=== PATIENT | male | born 1985 | race Caucasian/White ===

== ENCOUNTER 2019-11-14 12:04 | Emergency (ER) | payer OTHER ==
[2019-11-14] MEDS ORDERED: KETOROLAC 30 MG/ML INJ ONE (12:54)
[2019-11-14] MEDS ORDERED: DIAZEPAM 5 MG TABLET ONE (12:54)
[2019-11-14] MEDS ORDERED: LIDOCAINE 4% PATCH ONE (12:55)
[2019-11-14] MEDS ORDERED: MORPHINE 4 MG/ML SYR ONE (13:19)
--- NOTE | 2019-11-14 13:57 | ER ---
Nurse's Notes [facility] Name: Lenny Hickman Age: 34 yrs Sex: Male : 1985 Arrival Date: 11/14/2019 Time: 12:07 Bed 20 Private MD: Diagnosis: Low back pain Presentation: 11/14 12:07 Presenting complaint: EMS states: CHRONIC BACK PAIN EXACERBATION. Transition of care: bp patient was not received from another setting of care. Onset of symptoms is unknown. Risk Assessment: Do you want to hurt yourself or someone else? Patient reports no desire to harm self or others. Initial Sepsis Screen: Does the patient meet any 2 criteria? HR > 90 bpm. Does the patient have a suspected source of infection? No. Patient's initial sepsis screen is negative. Care prior to arrival: IV initiated. 20 GA, in the left antecubital area. 12:07 Acuity: BRANDON 4 bp 12:07 Method Of Arrival: EMS: [facility] bp Triage Assessment: 12:09 General: Appears in no apparent distress. uncomfortable, Behavior is calm, cooperative, bp appropriate for age. Pain: Complains of pain in back. EENT: No deficits noted. Neuro: No deficits noted. Cardiovascular: No deficits noted. Respiratory: No deficits noted. GI: No signs and/or symptoms were reported involving the gastrointestinal system. : No signs and/or symptoms were reported regarding the genitourinary system. Derm: No deficits noted. Musculoskeletal: Circulation, motion, and sensation intact. Range of motion: intact in all extremities. Historical: - Allergies: 12:09 No Known Allergies; bp - PMHx: 12:09 Chronic pain; Depression; bp - Immunization history:: Adult Immunizations up to date. - Social history:: Smoking status: Patient denies any tobacco usage or history of. - Ebola Screening: : No symptoms or risks identified at this time. Screenin:10 Abuse screen: Denies threats or abuse. Denies injuries from another. Nutritional bp screening: No deficits noted. Tuberculosis screening: No symptoms or risk factors identified. Fall Risk None identified. Assessment: 12:10 General: SEE TRIAGE NOTE. Neuro: Level of Consciousness is awake, alert, obeys bp commands, Oriented to person, place, time, situation, Appropriate for age Moves all extremities. Full function. 14:10 Reassessment: PT FAILED AMBULATION TEST. PROVIDER INFORMED. bp 14:23 Reassessment: D/C ON HOLD. PT MEDICATED FOR MUSCLE SPASMS. bp 15:24 Reassessment: PT AMBULATING SUCCESSFULLY. D/C HOME AMBULATORY WITH FAMILY, DX WITH LOW bp BACK PAIN. Vital Signs: 12:09 BP 130 / 80; Pulse 92; Resp 17; Temp 98; Pulse Ox 99% ; Weight 108.86 kg; bp 13:04 BP 133 / 86; Pulse 91; Resp 17; Pulse Ox 94% ; bp 14:01 BP 109 / 67; Pulse 102; Resp 17; Temp 98; Pulse Ox 96% ; bp 15:26 BP 117 / 71; Pulse 95; Resp 17; Temp 98.5; Pulse Ox 100% ; bp ED Course: 12:07 Patient arrived in ED. bp 12:07 Sergey Samuel FNP-C is PHCP. la1 12:07 Sienna Sen MD is Attending Physician. la1 12:09 Triage completed. bp 12:09 Arm band placed on. bp 12:10 Patient has correct armband on for positive identification. Bed in low position. Call bp light in reach. Side rails up X2. 12:11 Maintain EMS IV. Dressing intact. Good blood return noted. Site clean \T\ dry. Gauge \T\ bp site: 20 GAUGE LEFT AC. 12:41 Ayaan Rodriges, RN is Primary Nurse. bp 15:25 No provider procedures requiring assistance completed. IV discontinued, intact, bp bleeding controlled, No redness/swelling at site. Pressure dressing applied. Administered Medications: 12:45 Drug: Lidoderm 5 % (700 mg/patch) 1 patches Route: Topical; Site: affected area; bp 12:45 Drug: TORadol - Ketorolac 15 mg Route: IVP; Site: left antecubital; bp 13:05 Follow up: Response: Pain is decreased bp 12:45 Drug: Valium 10 mg Route: PO; bp 13:05 Follow up: Response: Pain is decreased bp 13:19 Drug: morphine 4 mg Route: IVP; Site: left antecubital; bp 13:19 Follow up: Response: No adverse reaction; Pain is decreased bp 14:22 Drug: Valium 2 mg Route: IVP; Site: left antecubital; bp 15:26 Follow up: Response: Pain is decreased bp Outcome: 13:57 Discharge ordered by MD. perea 15:25 Discharged to home ambulatory, with family. bp 15:25 Condition: stable 15:25 Discharge instructions given to patient, Instructed on discharge instructions, follow up and referral plans. medication usage, Demonstrated understanding of instructions, follow-up care, medications, Prescriptions given X 2. 15:32 Patient left the ED. bp Signatures: Sergey Samuel, ARCHITECTURE CONSULTANT-C ARCHITECTURE CONSULTANT-Cla1 Ayaan Rodriges, RN RN bp
--- NOTE | 2019-11-14 13:58 | EDPHYS ---
Physician Documentation [facility] Name: Lenny Hickman Age: 34 yrs Sex: Male : 1985 Arrival Date: 11/14/2019 Time: 12:07 Bed 20 Private MD: ED Physician Sienna Sen HPI: 11/14 13:07 This 34 yrs old Male presents to ER via EMS with complaints of Back Pain. la1 13:07 The patient presents with pain that is chronic, with no known mechanism of injury. The la1 symptoms are located in the low back. Onset: The symptoms/episode began/occurred just prior to arrival. The pain does not radiate. Associated signs and symptoms: Pertinent negatives: abdominal pain, chest pain, constipation, dysuria, fever, headache, hematuria, incontinence, nausea, numbness, tingling, urinary retention. The problem was sustained using foam roller. Modifying factors: The patient symptoms are alleviated by nothing, the patient symptoms are aggravated by any movement. Severity of symptoms: At their worst the symptoms were moderate. The patient has experienced similar episodes in the past. Historical: - Allergies: 12:09 No Known Allergies; bp - PMHx: 12:09 Chronic pain; Depression; bp - Immunization history:: Adult Immunizations up to date. - Social history:: Smoking status: Patient denies any tobacco usage or history of. - Ebola Screening: : No symptoms or risks identified at this time. ROS: 13:08 Constitutional: Negative for fever, chills, and weight loss, Eyes: Negative for injury, la1 pain, redness, and discharge, ENT: Negative for injury, pain, and discharge, Neck: Negative for injury, pain, and swelling, Cardiovascular: Negative for chest pain, palpitations, and edema, Respiratory: Negative for shortness of breath, cough, wheezing, and pleuritic chest pain, Abdomen/GI: Negative for abdominal pain, nausea, vomiting, diarrhea, and constipation. 13:08 : Negative for injury, bleeding, discharge, and swelling, MS/Extremity: Negative for injury and deformity, Neuro: Negative for headache, weakness, numbness, tingling, and seizure. 13:08 Back: Positive for pain at rest, pain with movement. Exam: 13:09 Constitutional: This is a well developed, well nourished patient who is awake, alert, la1 and in no acute distress. Head/Face: Normocephalic, atraumatic. Eyes: Periorbital areas with no swelling, redness, or edema. Neck: Trachea midline No Meningismus. Chest/axilla: Normal chest wall appearance and motion. Cardiovascular: Regular rate and rhythm with a normal S1 and S2. No gallops, murmurs, or rubs. Normal PMI, no JVD. No pulse deficits. Respiratory: Lungs have equal breath sounds bilaterally, clear to auscultation. Abdomen/GI: Soft, non-tender, with normal bowel sounds Back: No spinal tenderness. No costovertebral tenderness. Full range of motion. 13:57 Neuro: Exam negative for acute changes, focal neuro deficits, motor deficits, sensory la1 deficits, cerebellar deficits, altered mental status, confusion, cranial nerve deficits, disorientation. Vital Signs: 12:09 BP 130 / 80; Pulse 92; Resp 17; Temp 98; Pulse Ox 99% ; Weight 108.86 kg; bp 13:04 BP 133 / 86; Pulse 91; Resp 17; Pulse Ox 94% ; bp 14:01 BP 109 / 67; Pulse 102; Resp 17; Temp 98; Pulse Ox 96% ; bp 15:26 BP 117 / 71; Pulse 95; Resp 17; Temp 98.5; Pulse Ox 100% ; bp MDM: 12:07 Patient medically screened. la1 13:55 Data reviewed: vital signs, nurses notes, and as a result, I will discharge patient. la1 Data interpreted: Pulse oximetry: on room air is 95 %. Interpretation: acceptable. Counseling: I had a detailed discussion with the patient and/or guardian regarding: the historical points, exam findings, and any diagnostic results supporting the discharge/admit diagnosis, the need for outpatient follow up, a family practitioner, to return to the emergency department if symptoms worsen or persist or if there are any questions or concerns that arise at home. Medication response: morphine partially relieved the patient's pain. Response to treatment: the patient's symptoms have mildly improved after treatment, and as a result, I will discharge patient. ED course: pt with chronic back pain, no red flag back pain signs, pt feeling better after meds, will FU with PCP. Administered Medications: 12:45 Drug: Lidoderm 5 % (700 mg/patch) 1 patches Route: Topical; Site: affected area; bp 12:45 Drug: TORadol - Ketorolac 15 mg Route: IVP; Site: left antecubital; bp 13:05 Follow up: Response: Pain is decreased bp 12:45 Drug: Valium 10 mg Route: PO; bp 13:05 Follow up: Response: Pain is decreased bp 13:19 Drug: morphine 4 mg Route: IVP; Site: left antecubital; bp 13:19 Follow up: Response: No adverse reaction; Pain is decreased bp 14:22 Drug: Valium 2 mg Route: IVP; Site: left antecubital; bp 15:26 Follow up: Response: Pain is decreased bp Disposition: 18:21 Co-signature as Attending Physician, Sienna Sen MD. ma2 Disposition: 11/14/19 13:57 Discharged to Home. Impression: Low back pain. - Condition is Stable. - Discharge Instructions: Back Pain, Adult, Musculoskeletal Pain, Back Pain, Adult, [id number], Back Exercises, [id number]. - Prescriptions for Robaxin 500 mg Oral Tablet - take 2 tablet by ORAL route every 6 hours As needed; 40 tablet. Cyclobenzaprine 10 mg Oral Tablet - take 1 tablet by ORAL route every 8 hours As needed; 30 tablet. - Medication Reconciliation Form, Thank You Letter form. - Follow up: Private Physician; When: 2 - 3 days; Reason: Recheck today's complaints, Re-evaluation by your physician. - Problem is new. - Symptoms have improved. Signatures: Sergey Samuel, IRONWORKER APPRENTICE SHOP-C IRONWORKER APPRENTICE SHOP-Cla1 Ayaan Rodriges RN RN Sienna Schultz MD MD ma2 Corrections: (The following items were deleted from the chart) 15:32 13:57 11/14/2019 13:57 Discharged to Home. Impression: Low back pain. Condition is bp Stable. Forms are Medication Reconciliation Form, Thank You Letter, Antibiotic Education, Prescription Opioid Use. Follow up: Private Physician; When: 2 - 3 days; Reason: Recheck today's complaints, Re-evaluation by your physician. Problem is new. Symptoms have improved. la1
[2019-11-14] MEDS ORDERED: DIAZEPAM 10 MG/2 ML INJ SYRINGE ONE (14:21)
[2019-11-14 15:55] VITALS: BP 117/71; TEMP 98.5; O2SAT 100
== END 2019-11-14 15:32 | disposition home or self-care (01) ==
LOC: ER 12:04
DX: M54.5 Low back pain (principal); G89.29 Other chronic pain
CPT/HCPCS: 96375; 96374; 99283; J3360

== ENCOUNTER 2020-11-16 02:20 | Emergency (ER) | payer OTHER ==
[2020-11-16] MEDS ORDERED: predniSONE 20 MG TAB ONE (02:59)
[2020-11-16] MEDS ORDERED: KETOROLAC 30 MG/ML INJ ONE (02:59)
[2020-11-16 03:43] LABS: SARS-COV-2 RT PCR POSITIVE (NEGATIVE)
--- NOTE | 2020-11-16 03:48 | ER ---
Nurse's Notes [facility] Name: Lenny Hickman Age: 35 yrs Sex: Male : 1985 Arrival Date: 11/16/2020 Time: 02:21 Bed 4 Private MD: Diagnosis: Coronavirus infection, unspecified Presentation: 11/16 02:28 Chief complaint: Patient states: This all started on , thought it was just sg sinus infection/head cold. reports feeling chills and having a cough with phlegm, states increases fluids and having an increase in urination. no other symptoms reported for triage at this time. Coronavirus screen: Client denies travel out of the [place] in the last 14 days. chills, congestion, cough unrelated to allergies, fatigue, Client presents with at least one sign or symptom that may indicate coronavirus-19. Standard/surgical mask placed on the client. Provider contacted for isolation considerations. The client denies any previous COVID testing. Ebola Screen: Patient negative for fever greater than or equal to 101.5 degrees Fahrenheit, and additional compatible Ebola Virus Disease symptoms Patient denies exposure to infectious person. Patient denies travel to an Ebola-affected area in the 21 days before illness onset. No symptoms or risks identified at this time. Initial Sepsis Screen: Does the patient meet any 2 criteria? No. Patient's initial sepsis screen is negative. Does the patient have a suspected source of infection? No. Patient's initial sepsis screen is negative. Risk Assessment: Do you want to hurt yourself or someone else? Patient reports no desire to harm self or others. 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 Onset of symptoms was November 10, 2020. Care prior to arrival: None. Mechanism of Injury: No Mechanism of Injury. Transition of care: patient was not received from another setting of care. 02:28 Acuity: BRANDON 4 sg 02:28 Method Of Arrival: Ambulatory sg Historical: - Allergies: 02:33 No Known Allergies; sg - Home Meds: 02:33 Lunesta oral oral [Active]; Effexor Oral [Active]; Latuda oral oral [Active]; sg - PMHx: 02:33 Chronic pain; Depression; sg - PSHx: 02:33 None; sg - Immunization history:: Adult Immunizations up to date. - Social history:: Smoking status: Patient denies any tobacco usage or history of. Patient/guardian denies using alcohol, street drugs, The patient lives with family. - Family history:: not pertinent. Screenin:34 Abuse screen: Denies threats or abuse. Nutritional screening: No deficits noted. ea Tuberculosis screening: No symptoms or risk factors identified. Fall Risk None identified. Assessment: 02:33 General: Appears in no apparent distress. Behavior is calm, cooperative, appropriate ea for age. Pain: Denies pain. Neuro: Level of Consciousness is awake, alert, obeys commands, Oriented to person, place, time, situation. Respiratory: Airway is patent Respiratory effort is even, unlabored, Respiratory pattern is regular, symmetrical. Derm: Skin is pink, warm \T\ dry. 03:30 Reassessment: Patient and/or family updated on plan of care and expected duration. Pain ea level reassessed. Patient is alert, oriented x 3, equal unlabored respirations, skin warm/dry/pink. 03:54 Reassessment: Patient and/or family updated on plan of care and expected duration. Pain ea level reassessed. Patient is alert, oriented x 3, equal unlabored respirations, skin warm/dry/pink. Discharge instruction given to patient, verbalized the understanding of instruction. Pt left ED ambulatory tolerating well. Vital Signs: 02:34 BP 151 / 117; Pulse 117; Resp 18; Pulse Ox 93% ; ea 02:34 Weight 117.93 kg (R); Height 5 ft. 10 in. (177.80 cm) (R); sg 03:30 BP 110 / 94; Pulse 71; Resp 18; Pulse Ox 96% on R/A; ea 03:35 Temp 98.3; ea 02:34 Body Mass Index 37.31 (117.93 kg, 177.80 cm) ED Course: 02:21 Patient arrived in ED. cl3 02:23 Sienna Sen MD is Attending Physician. ma2 02:28 Arm band placed on. sg 02:31 Triage completed. sg 02:33 Noemi Shelton, JOHN is Primary Nurse. ea 02:34 Patient has correct armband on for positive identification. Bed in low position. Call ea light in reach. Side rails up X2. 02:50 CXR XRAY In Process Unspecified. EDMS 03:55 No provider procedures requiring assistance completed. IV discontinued, intact, ea bleeding controlled, No redness/swelling at site. Pressure dressing applied. Administered Medications: 02:51 Drug: predniSONE 40 mg Route: PO; ea 03:43 Follow up: Response: No adverse reaction ea 02:51 Drug: TORadol 60 mg Route: IM; Site: right gluteus; ea 03:43 Follow up: Response: No adverse reaction ea Outcome: 03:48 Discharge ordered by MD. bhatt 03:55 Discharged to home ambulatory, with family. andreea 03:55 Condition: stable 03:55 Discharge instructions given to patient, Instructed on discharge instructions, follow up and referral plans. medication usage, Demonstrated understanding of instructions, follow-up care, medications, Prescriptions given X 4. 03:56 Patient left the ED. ea Signatures: Dispatcher [employer] EDMS Don Coyle RN RN sg Antunez, Elena, RN RN ea Alzahri, Mohammad, MD MD ma2 Lewis, Charde 3
--- NOTE | 2020-11-16 03:48 | EDPHYS ---
Physician Documentation [facility] Name: Lenny Hickman Age: 35 yrs Sex: Male : 1985 Arrival Date: 11/16/2020 Time: 02:21 Bed 4 Private MD: ED Physician Sienna Sen HPI: 11/16 03:34 This 35 yrs old Male presents to ER via Ambulatory with complaints of ma2 Shakiness, Sweats. 03:34 The patient or guardian reports cough, flu symptoms. Onset: The symptoms/episode ma2 began/occurred gradually, 1 day(s) ago. Associated signs and symptoms: Pertinent negatives: fever, nausea, rhinorrhea. The patient has not experienced similar symptoms in the past. Historical: - Allergies: 02:33 No Known Allergies; sg - Home Meds: 02:33 Lunesta oral oral [Active]; Effexor Oral [Active]; Latuda oral oral [Active]; sg - PMHx: 02:33 Chronic pain; Depression; sg - PSHx: 02:33 None; sg - Immunization history:: Adult Immunizations up to date. - Social history:: Smoking status: Patient denies any tobacco usage or history of. Patient/guardian denies using alcohol, street drugs, The patient lives with family. - Family history:: not pertinent. ROS: 03:34 Constitutional: Negative for fever, chills, and weight loss. ma2 03:34 All other systems are negative. Exam: 03:34 Constitutional: This is a well developed, well nourished patient who is awake, alert, ma2 and in no acute distress. Head/Face: Normocephalic, atraumatic. Chest/axilla: Normal chest wall appearance and motion. Nontender with no deformity. No lesions are appreciated. Cardiovascular: Regular rate and rhythm with a normal S1 and S2. No gallops, murmurs, or rubs. Normal PMI, no JVD. No pulse deficits. Respiratory: Lungs have equal breath sounds bilaterally, clear to auscultation and percussion. No rales, rhonchi or wheezes noted. No increased work of breathing, no retractions or nasal flaring. Abdomen/GI: Soft, non-tender, with normal bowel sounds. No distension or tympany. No guarding or rebound. No evidence of tenderness throughout. MS/ Extremity: Pulses equal, no cyanosis. Neurovascular intact. Full, normal range of motion. Neuro: Awake and alert, GCS 15, oriented to person, place, time, and situation. Cranial nerves II-XII grossly intact. Motor strength 5/5 in all extremities. Sensory grossly intact. Cerebellar exam normal. Normal gait. 03:34 Eyes: Pupils equal round and reactive to light, extra-ocular motions intact. Lids and ma2 lashes normal. Conjunctiva and sclera are non-icteric and not injected. Cornea within normal limits. Periorbital areas with no swelling, redness, or edema. ENT: Nares patent. No nasal discharge, no septal abnormalities noted. Tympanic membranes are normal and external auditory canals are clear. Oropharynx with no redness, swelling, or masses, exudates, or evidence of obstruction, uvula midline. Mucous membranes moist. Neck: Trachea midline, no thyromegaly or masses palpated, and no cervical lymphadenopathy. Supple, full range of motion without nuchal rigidity, or vertebral point tenderness. No Meningismus. Back: No spinal tenderness. No costovertebral tenderness. Full range of motion. Vital Signs: 02:34 BP 151 / 117; Pulse 117; Resp 18; Pulse Ox 93% ; ea 02:34 Weight 117.93 kg (R); Height 5 ft. 10 in. (177.80 cm) (R); sg 03:30 BP 110 / 94; Pulse 71; Resp 18; Pulse Ox 96% on R/A; ea 03:35 Temp 98.3; ea 02:34 Body Mass Index 37.31 (117.93 kg, 177.80 cm) sg MDM: 02:23 Patient medically screened. ma2 03:34 Differential Diagnosis: Bronchitis Influenza Upper Respiratory Infection Sinusitis ma2 Pharyngitis. Data reviewed: vital signs, nurses notes. Counseling: I had a detailed discussion with the patient and/or guardian regarding: the historical points, exam findings, and any diagnostic results supporting the discharge/admit diagnosis, the presence of at least one elevated blood pressure reading (>120/80) during this emergency department visit, the need for outpatient follow up. Response to treatment: the patient's symptoms have markedly improved after treatment. 11/16 02:35 Order name: CXR XRAY ma2 11/16 02:35 Order name: Strep [facility] 11/16 03:43 Order name: Throat Culture [facility] 11/16 03:43 Order name: COVID-19/FLU A+B [facility] 11/16 02:35 Order name: Droplet/Contact Precautions; Complete Time: 02:42 ak2 11/16 02:35 Order name: Labs collected and sent; Complete Time: 02:42 ma2 11/16 02:35 Order name: O2 Per Protocol; Complete Time: 02:42 ma2 Administered Medications: 02:51 Drug: predniSONE 40 mg Route: PO; ea 03:43 Follow up: Response: No adverse reaction ea 02:51 Drug: TORadol 60 mg Route: IM; Site: right gluteus; ea 03:43 Follow up: Response: No adverse reaction ea Disposition: 11/16/20 03:48 Discharged to Home. Impression: Coronavirus infection, unspecified. - Condition is Stable. - Discharge Instructions: COVID-19. - Prescriptions for Diclofenac Sodium 75 mg Oral Tablet Sustained Release - take 1 tablet by ORAL route 2 times per day; 30 tablet. Zithromax Z- Prem 250 mg Oral Tablet - take 1 tablet by ORAL route as directed for 5 days Day 1 - take two (2) tablets one time. Day 2, 3, 4 , 5 take one (1) tablet once daily.; 6 tablet. Medrol (Prem) 4 mg Oral Tablets, Dose Pack - take 1 tablet by ORAL route as directed - follow package instructions; 1 packet. Albuterol Sulfate 90 mcg/actuation - inhale 1-2 puff by INHALATION route every 4-6 hours; 1 Inhaler. - Work release form, Medication Reconciliation Form, Thank You Letter, Antibiotic Education, Prescription Opioid Use form. - Follow up: Private Physician; When: Tomorrow; Reason: If symptoms return. Signatures: Dispatcher [employer] EDDon Colmenares RN RN sg Antunez, Elena, RN RN ea Alzahri, Mohammad, MD MD ma2 Corrections: (The following items were deleted from the chart) 02:53 02:36 CORONAVIRUS+MR.LAB.BRZ ordered. EDMS EDMS 02:53 02:36 Influenza Screen (A \T\ B)+BA.LAB.BRZ ordered. EDMS EDMS 03:56 03:48 11/16/2020 03:48 Discharged to Home. Impression: Coronavirus infection, ea unspecified. Condition is Stable. Prescriptions for Diclofenac Sodium 75 mg Oral Tablet Sustained Release - take 1 tablet by ORAL route 2 times per day; 30 tablet, Zithromax Z-Prem 250 mg Oral Tablet - take 1 tablet by ORAL route as directed for 5 days Day 1 - take two (2) tablets one time. Day 2, 3, 4 , 5 take one (1) tablet once daily.; 6 tablet, Medrol (Prem) 4 mg Oral Tablets, Dose Pack - take 1 tablet by ORAL route as directed - follow package instructions; 1 packet, Albuterol Sulfate 90 mcg/actuation - inhale 1-2 puff by INHALATION route every 4-6 hours; 1 Inhaler. and Forms are Medication Reconciliation Form, Thank You Letter, Antibiotic Education, Prescription Opioid Use. Follow up: Private Physician; When: Tomorrow; Reason: If symptoms return. ma2
[2020-11-16 04:05] VITALS: BP 110/94; O2SAT 96
[2020-11-16 04:06] VITALS: TEMP 98.3
--- NOTE | 2020-11-16 07:51 | RAD REPORT ---
EXAM DESCRIPTION: [facility] Single View11/16/2020 2:50 am CLINICAL HISTORY: Congestion COMPARISON: none FINDINGS: The lungs appear clear of acute infiltrate. The heart is normal size IMPRESSION: No acute abnormalities displayed
== END 2020-11-16 03:56 | disposition home or self-care (01) ==
LOC: ER 02:20
DX: U07.1 COVID-19 (principal); B34.2 Coronavirus infection, unspecified; F32.9 Major depressive disorder, single episode, unspecified
CPT/HCPCS: 0240U; 71045; 87070; 87081; 96372; 99283; J7512